=== PATIENT | male | born 1995 | race African-American/Black ===

== ENCOUNTER 2017-06-09 14:41 | Emergency (ER) | payer SELFPAY ==
[2017-06-09 14:45] VITALS: RESP 16; TEMP 98.2
[2017-06-09] MEDS ORDERED: CEFTRIAXONE IM 350 MG/ML SYRINGE IM ONE (15:03)
[2017-06-09] MEDS ORDERED: AZITHROMYCIN 250 MG TAB PO ONE (15:03)
--- NOTE | 2017-06-09 15:05 | EDPHY ---
H & P Stated Complaint: pain with urination. discharge from penis Time Seen by Provider: 06/09/17 15:08 HPI/ROS: HPI: This is a 21-year-old male presents with Chief Complaint: Pain with urination, penile discharge Location: Quality: Pain with urination, penile discharge Duration: 4 days Signs and Symptoms: No fever, no back pain, no testicular/groin pain, no scrotal swelling Timing: Sudden Severity: Moderate Context: Patient reports that he has had recent sexual intercourse that was unprotected and presents today with 4 day history of burning with urination and yellowish white penile discharge. He was informed by his sexual partner that she tested positive for gonorrhea. He is concerned that he has gonorrhea as well. He is eating and drinking normally. Denies any testicular/groin pain. Has never had an STD infection in the past. Modifying Factors: None Comment: ROS: see HPI Constitutional: No fever, no chills, no weight loss Eyes: No blurred vision Respiratory: No shortness of breath, no cough Cardiovascular: No chest pain Gastrointestinal: No nausea, no vomiting, no diarrhea Genitourinary: No dysuria Extremities: No myalgias Neurologic: No weakness, no numbness Skin: No rashes Hematologic: No bruising, no bleeding MEDICAL/SURGICAL/SOCIAL HISTORY: Medical history: Generally healthy. Does not take any regular medications. Surgical history: Denies Social history: heterosexual CONSTITUTIONAL: awake and alert, no obvious distress HEENT: Atraumatic and normocephalic, PERRL, EOMI. Tympanic membranes clear. Oropharynx clear, no exudate and moist pink mucosa. Airway patent. No lymphadenopathy. No meningismus. Cardiovascular: Normal S1/S2, regular rate, regular rhythm, without murmur rub or gallop. PULMONARY/CHEST: Symmetrical and nontender. Clear to auscultation bilaterally. Good air movement. No accessory muscle usage. ABDOMEN: Soft, nondistended, nontender, no rebound, no guarding, no peritoneal signs, no masses or organomegaly. No CVAT. : Circumcised penis, no testicular tenderness or swelling, scant amount of white discharge noted at penile urethra EXTREMITIES: 2/2 pulses, strength 5/5, no deformities, no clubbing, no cyanosis or edema. NEUROLOGICAL: no focal neuro deficits. GCS 15. SKIN: Warm and dry, no erythema. no rash. Good capillary refill. Source: Patient Exam Limitations: No limitations - Personal History Current Tetanus/Diphtheria Vaccine: Unsure Current Tetanus Diphtheria and Acellular Pertussis (TDAP): Unsure - Medical/Surgical History Hx Asthma: No Hx Chronic Respiratory Disease: No Hx Diabetes: No Hx Cardiac Disease: No Hx Renal Disease: No Hx Cirrhosis: No Hx Alcoholism: No Hx HIV/AIDS: No Hx Splenectomy or Spleen Trauma: No - Social History Smoking Status: Never smoked Constitutional: Initial Vital Signs Temperature (C) 36.8 C 06/09/17 14:43 Heart Rate 76 06/09/17 14:43 Respiratory Rate 16 06/09/17 14:43 Blood Pressure 112/76 06/09/17 14:43 O2 Sat (%) 98 06/09/17 14:43 O2 Delivery Mode Room Air Allergies/Adverse Reactions: No Known Allergies Allergy (Unverified 06/09/17 14:46) Medical Decision Making ED Course/Re-evaluation: Urinalysis, Trichomonas, gonorrhea, chlamydia ordered Given IM ceftriaxone 250 mg and azithromycin 1 g p.o. No testicular pain/swelling. Testicular ultrasound not indicated as no concern for testicular torsion. This patient was seen under the supervision of my primary supervising physician. I evaluated care for this patient independently. Patient's presentation, labs/imaging, treatment and plan of care were discussed with primary supervising physician. Differential Diagnosis: Differential diagnosis includes but is not limited to urethritis, epididymitis, STD infection. - Data Points Laboratory Results: 06/09/17 06/09/17 06/09/17 15:00 15:00 15:00 Urine Color YELLOW Urine Appearance HAZY Urine pH 5.0 (5.0-7.5) Ur Specific Jackson 1.030 (1.002-1.030) Urine Protein 1+ H (NEGATIVE) Urine Ketones NEGATIVE (NEGATIVE) Urine Blood NEGATIVE (NEGATIVE) Urine Nitrate NEGATIVE (NEGATIVE) Urine Bilirubin NEGATIVE (NEGATIVE) Urine Urobilinogen 2.0 EU H EU (0.2-1.0) Ur Leukocyte Esterase 3+ H (NEGATIVE) Urine RBC 10-15 /hpf H /hpf (0-3) Urine WBC 50-182 /hpf H /hpf (0-3) Ur Epithelial Cells NONE SEEN /lpf /lpf (NONE-1+) Urine Mucus TRACE /lpf /lpf (NONE-1+) Urine Glucose NEGATIVE (NEGATIVE) C.trachomatis RNA (TMA) Pending N.gonorrhoeae RNA (TMA) Pending Miscellaneous Test Pending Medications Given: Discontinued Medications Azithromycin (Zithromax) 1,000 mg PO EDNOW ONE PRN Reason: Protocol Stop: 06/09/17 15:04 Last Admin: 06/09/17 15:26 Dose: 1,000 mg Departure - Departure Disposition: Home, Routine, Self-Care Clinical Impression: Concern about STD in male without diagnosis Condition: Good Instructions: Chlamydia (ED), Sexually Transmitted Diseases (ED), Condom Use ( ED), Gonorrhea (ED) Additional Instructions: Cultures for gonorrhea and chlamydia were sent off today. Please call Sunday for the results. Please abstain from sexual intercourse until all your sexual partners have been treated and wait a minimum of 7 days. You have received treatment for gonorrhea and chlamydia today in the emergency room. If you have worsening testicular pain and fever, return to the emergency room immediately for re-evaluation. Referrals: [facility],. [Clinic] - As per Instructions
[2017-06-09 15:24] LABS: COLOR YELLOW; LEUKOCYTE ESTERASE,URINE 3+ (NEGATIVE); NITRITE,URINE NEGATIVE (NEGATIVE)
[2017-06-09 15:31] LABS: MUCUS TRACE /lpf (NONE-1+); WBC,URINE 50-182 /hpf (0-3)
[2017-06-09 16:18] VITALS: BP 114/71; PULSE 72; O2SAT 95
[2017-06-11 11:47] LABS: CHLAMYDIA AMPLIFICATION GENPRB NEGATIVE (NEGATIVE)
== END 2017-06-09 16:18 | disposition home or self-care (01) ==
DX: Z20.2 Contact with and (suspected) exposure to infections with a predominantly sexual mode of transmission (principal)
CPT/HCPCS: J0696